=== PATIENT | female | born 1985 | race Two or more races ===

== ENCOUNTER → 2018-08-30 | Day surgery (SDC) | payer OTHER | END | disposition home or self-care (01) | LOC: EDSTATUS 08-27 08:00 → ADM 08-27 08:00 → CIR.AMB 06:55 | DX: N61.0 Mastitis without abscess (principal); D48.61 Neoplasm of uncertain behavior of right breast ==

== ENCOUNTER 2020-11-12 07:29 | Day surgery (SDC) | payer OTHER | END 2020-11-12 18:40 | disposition home or self-care (01) | LOC: CIR.AMB 07:29 | PROVIDERS: ATTEND Plastic Surgery | DX: N64.81 Ptosis of breast (principal); Z20.822 Contact with and (suspected) exposure to COVID-19 ==